=== PATIENT | female | born 1965 | race Caucasian/White ===

== ENCOUNTER → 2017-07-14 | Outpatient (CLI) | payer MEDICARE, OTHER ==
[~2017-07-14] MED LIST: ASPIR 8181 M1 PO; ASPIRIN81 M2 PO; B-12 DOTS500 MCG PO; B-121500 MCG PO; BACLOFEN20 MG PO; BIOTIN1000 MICRO PO; CALCIUM + D 601 EACH PO; CALCIUM 500 +1 EACH PO; CALCIUM 600 +1 EAC4 PO; CALCIUM500 M4 PO; CARBIDOPA-LEVO1 EAC1 PO; CELEXA20 MG PO; CIPROFLOXACIN500 M1 PO; CITALOPRAM HBR20 M1 PO; CITALOPRAM HBR20 MG PO; CITALOPRAM HBR40 M1 PO; COL-RITE100 M1 PO; CYANOCOBALAM1000 MC1 PO; CYANOCOBALAM1000 MC1 SC; CYANOCOBALAM1000 MCG PO; DIAZEPAM5 MG PO; DOCUSATE SODIU100 MG PO; DULCOLAX5 MG PO; DURAGESIC1 EAC1 TD; DURAGESIC100 MCG TD; Dulcolax PO; FENTANYL TP; FENTANYL1 EAC2 TD; FENTANYL1 EAC3 TD; FISH OIL500 MG PO; FLINTSTONES CO1 EACH PO; FLINTSTONES M100 MCG PO; FOLIC ACID0.8 MG PO; HYDROCODON-ACE1 EAC8 PO; LIDODERM 5% P1 PATCH PO; LIDODERM 5% P1 PATCH TD; METHOTREXATE2.5 M1 PO; MEXITIL150 MG PO; MS CONTIN30 MG PO; MULTIVITAMIN1 EAC1 PO; NEURONTIN400 M1 PO; NEURONTIN800 MG PO; PERI-COLACE TA1 EACH PO; RANITIDINE HCL150 M1 PO; REGLAN10 M1 PO; REGLAN10 MG PO; REGLAN5 MG PO; REQUIP1 MG PO; SYNTHROID137 MCG PO; SYNTHROID175 MCG PO; SYNTHROID200 MCG PO; Senokot S,Pericolace PO; TIZANIDINE HCL4 MG PO; TREXALL15 MG PO; VESICARE5 MG PO; VICODIN ES 7.51 EAC1 PO; VITAMIN B-6100 MG PO; ZANTAC150 MG PO; ZOFRAN4 MG PO
== END | disposition home or self-care (01) ==
LOC: CDC 11:55
DX: L97.522 Non-pressure chronic ulcer of other part of left foot with fat layer exposed (principal); G62.9 Polyneuropathy, unspecified; M20.5X2 Other deformities of toe(s) (acquired), left foot; M20.12 Hallux valgus (acquired), left foot; R26.9 Unspecified abnormalities of gait and mobility; R00.1 Bradycardia, unspecified; R94.31 Abnormal electrocardiogram [ECG] [EKG]
CPT/HCPCS: 93000

== ENCOUNTER 2017-07-28 05:39 | Day surgery (SDC) | payer OTHER ==
[~2017-07-28] VITALS: Ht 180.3 cm; Wt 90.7 kg
[~2017-07-28 05:39] MED LIST changes: +OXYCONTIN30 MG PO; +PERCOCET 10/1 TABLET PO
[2017-07-28 05:58] VITALS: BP 162/86
[2017-07-28 09:43] VITALS: BP 181/86
[2017-07-28 10:35] VITALS: BP 143/72
== END 2017-07-28 10:50 | disposition home or self-care (01) ==
LOC: SDC 05:39
PROC: 0Y6W0Z0 Detachment at Left 4th Toe, Complete, Open Approach (ICD-10-PCS; principal; 2017-07-28)
DX: L97.523 Non-pressure chronic ulcer of other part of left foot with necrosis of muscle (principal); M86.60 Other chronic osteomyelitis, unspecified site; G90.50 Complex regional pain syndrome I, unspecified; N28.89 Other specified disorders of kidney and ureter; F17.210 Nicotine dependence, cigarettes, uncomplicated; G58.7 Mononeuritis multiplex; E78.5 Hyperlipidemia, unspecified; E28.2 Polycystic ovarian syndrome; E03.9 Hypothyroidism, unspecified; G47.30 Sleep apnea, unspecified; Z79.82 Long term (current) use of aspirin; Z98.84 Bariatric surgery status; Z88.0 Allergy status to penicillin; Z88.1 Allergy status to other antibiotic agents; Z88.8 Allergy status to other drugs, medicaments and biological substances
CPT/HCPCS: 87070; 87075; 87205; 88305; 88311; J0690; J2250; J2405; J3010; J7050; S0020

== ENCOUNTER 2017-11-15 08:39 | Day surgery (SDC) | payer OTHER ==
[~2017-11-15] VITALS: Ht 177.8 cm; Wt 102.0 kg
[~2017-11-15 08:39] MED LIST changes: +ALPHA LIPOIC A600 MG PO
[2017-11-15 09:02] VITALS: BP 155/84
[2017-11-15 15:18] VITALS: BP 152/77
[2017-11-15 16:10] VITALS: BP 150/78
== END 2017-11-15 16:15 | disposition home or self-care (01) ==
LOC: SDC 08:39
DX: M20.12 Hallux valgus (acquired), left foot (principal); M20.42 Other hammer toe(s) (acquired), left foot; M20.5X2 Other deformities of toe(s) (acquired), left foot; M24.575 Contracture, left foot; L97.529 Non-pressure chronic ulcer of other part of left foot with unspecified severity; E03.9 Hypothyroidism, unspecified; E78.5 Hyperlipidemia, unspecified; R00.1 Bradycardia, unspecified; F17.200 Nicotine dependence, unspecified, uncomplicated; Z88.0 Allergy status to penicillin
CPT/HCPCS: 73630; 76000; C1713; J0330; J1100; J1170; J1885; J2250; J2405; J3010; J7050; S0020

== ENCOUNTER 2018-03-31 19:29 | Emergency (ER) | payer OTHER ==
[~2018-03-31] VITALS: Ht 180.3 cm; Wt 101.4 kg
[2018-03-31 20:21] LABS: HEMATOCRIT 44.5 % (36.0-46.0); HEMOGLOBIN 15.6 G/DL (11.9-15.5); MCH 31.3 PG (29.0-34.0); MCHC 35.1 G/DL (30.0-36.0); MCV 89.2 FL (83-99); PLATELET COUNT 370 K/uL (156-360); RBC DIS.WIDTH-CV 14.4 % (11.8-14.6); RBC DIS.WIDTH-SD 46.1 % (39-53); RED BLOOD COUNT 4.99 M/uL (3.80-5.20)
[2018-03-31 20:31] LABS: CHLORIDE 105 mEq/L (99-109); POTASSIUM 3.8 mEq/L (3.7-5.4); SODIUM 143 mEq/L (136-147)
[2018-03-31 20:33] LABS: GLUCOSE 102 mg/dL (70-99)
[2018-03-31 20:37] LABS: CREATININE 0.9 mg/dL (0.6-1.3); GFR ESTIMATE (CALCULATED) > 59 mL/min/
[2018-03-31 20:38] LABS: UREA NITROGEN (BUN) 13 mg/dL (9-23)
[2018-03-31 20:42] LABS: TROP-I INTERPRETATION NEGATIVE; TROPONIN-I < 0.01 ng/mL (0.0-0.30)
[2018-03-31 21:10] LABS: MAGNESIUM 2.7 mg/dL (1.3-2.7)
[2018-03-31 21:15] LABS: PHOSPHORUS 2.8 mg/dL (2.5-4.9)
[2018-03-31 22:01] LABS: APPEARANCE SL.HAZY ((CLEAR)); BILIRUBIN NEGATIVE; BLOOD NEGATIVE; COLOR YELLOW ((YELLOW)); GLUCOSE (STRIP) NEGATIVE; KETONES NEGATIVE; LEUKOCYTES NEGATIVE; NITRITE NEGATIVE; PROTEIN (STRIP) 30; SPECIFIC GRAVITY 1.015 (1.000-1.030); UROBILINOGEN 0.2 MG/DL (0.2-1.0)
[2018-03-31 22:06] LABS: BACTERIA NONE SEEN /HPF; EPITHELIAL CELLS RARE /HPF; MUCUS TRACE /LPF; RED BLOOD CELLS 0-5 /HPF (0-5); UCUL ADDED? NO; WHITE BLOOD CELLS 0-5 /HPF (0-5)
[2018-03-31 22:53] LABS: TROP-I INTERPRETATION NEGATIVE; TROPONIN-I < 0.01 ng/mL (0.0-0.30)
[2018-03-31] MEDS ORDERED: CLONIDINE HCL0.1 MG PO (23:29)
[2018-03-31 23:45] VITALS: BP 116/73
== END 2018-03-31 23:45 | disposition home or self-care (01) ==
LOC: EME 19:29
PROVIDERS: Emergency Medicine
DX: R07.9 Chest pain, unspecified (principal); I10 Essential (primary) hypertension; E78.5 Hyperlipidemia, unspecified; F17.200 Nicotine dependence, unspecified, uncomplicated; F32.9 Major depressive disorder, single episode, unspecified; E06.3 Autoimmune thyroiditis; Z98.84 Bariatric surgery status; Z79.82 Long term (current) use of aspirin; Z88.1 Allergy status to other antibiotic agents; Z88.0 Allergy status to penicillin; Z87.442 Personal history of urinary calculi
CPT/HCPCS: 71046; 80048; 81003; 83735; 84100; 84484; 85027; 85379; 93005; 99281; 99285; J7030

== ENCOUNTER → 2018-04-03 17:11 | Emergency (ER) | payer OTHER ==
[~2018-04-03] VITALS: Ht 180.3 cm; Wt 102.1 kg
[~2018-04-03 17:11] MED LIST changes: +CLONIDINE HCL0.1 MG PO
[2018-04-03 17:32] VITALS: BP 191/97
[2018-04-03 18:02] LABS: HEMATOCRIT 41.9 % (36.0-46.0); HEMOGLOBIN 14.6 G/DL (11.9-15.5); MCH 30.8 PG (29.0-34.0); MCHC 34.8 G/DL (30.0-36.0); MCV 88.4 FL (83-99); PLATELET COUNT 351 K/uL (156-360); RBC DIS.WIDTH-CV 14.2 % (11.8-14.6); RBC DIS.WIDTH-SD 45.4 % (39-53); RED BLOOD COUNT 4.74 M/uL (3.80-5.20); WHITE BLOOD COUNT 6.7 K/uL (4.1-10.2)
[2018-04-03 18:19] LABS: CHLORIDE 107 mEq/L (99-109); POTASSIUM 3.5 mEq/L (3.7-5.4); SODIUM 143 mEq/L (136-147)
[2018-04-03 18:21] LABS: GLUCOSE 96 mg/dL (70-99)
[2018-04-03 18:25] LABS: CREATININE 0.8 mg/dL (0.6-1.3); GFR ESTIMATE (CALCULATED) > 59 mL/min/
[2018-04-03 18:26] LABS: UREA NITROGEN (BUN) 12 mg/dL (9-23)
[2018-04-03 18:27] LABS: TROP-I INTERPRETATION NEGATIVE; TROPONIN-I < 0.01 ng/mL (0.0-0.30)
== END | disposition left against medical advice (07) ==
LOC: EME 17:11
DX: R06.02 Shortness of breath (principal); R00.2 Palpitations; R42 Dizziness and giddiness; Z53.21 Procedure and treatment not carried out due to patient leaving prior to being seen by health care provider
CPT/HCPCS: 80048; 84484; 85027; 93005